=== PATIENT | female | born 1995 | race Caucasian/White ===

== ENCOUNTER 2019-08-14 19:49 | Emergency (ER) | payer MEDICAID, OTHER ==
[~2019-08-14] VITALS: Ht 170.2 cm; Wt 64.9 kg
[~2019-08-14 19:49] MED LIST: MEDR150D3 IM
[2019-08-14 19:56] VITALS: BP 124/78
--- NOTE | 2019-08-14 20:07 | ER.PDOC ---
General Chief Complaint: Chest Pain-Cardiac Nature Stated Complaint: CHEST PAIN Time seen by MD: 19:59 Source: patient Exam Limitations: no limitations History of Present Illness Initial Comments Pt c/o palpitation and tightness in her chest just before coming to the ER. She took an "EmergenC" packet just prior to onset of symptoms. She was seen at [place] ER last night for low blood pressure and feeling light headed. Labs and CT there were normal. Timing/Duration: 1 hour Severity/Quality: moderate Radiation: no radiation Activities at Onset: rest Prior CP/Workup: No Prior Chest Pain Nitro Today/Relief: No Nitro Taken Today Aspirin Today: No Aspirin Today Associated Symptoms: denies symptoms Allergies: Coded Allergies: No Known Allergies (Unverified , 01/29/14) Home Meds Active Scripts Medroxyprogesterone Acetate (DEPO-PROVERA) 150 Mg/1 Ml Disp.syrin, 150 MG IM [id number], #1 SYR Prov:PAULO ALCANTARA NP 01/29/14 Past Medical History Medical History: other (ASD) Surgical History: no surgical history Family History Significant Family History: no pertinent family hx Social History Smoking: non-smoker Drug Use: none Constitutional: no symptoms reported EENTM: no symptoms reported Respiratory: no symptoms reported Cardiovascular: chest pain (tightness), palpitations Gastrointestinal: no symptoms reported Musculoskeletal: no symptoms reported Skin: no symptoms reported Physical Exam General Appearance: No Apparent Distress, WD/WN Respiratory: chest non-tender, lungs clear, normal breath sounds, no respiratory distress, no accessory muscle use Cardiovascular: Regular Rate, Rhythm, No Edema, No Gallop, No Murmur Gastrointestinal: Normal Bowel Sounds Extremities: Normal Range of Motion, Non-Tender Neurologic/Psychiatric: Alert, Normal Mood/Affect, Oriented x 3 Skin: Normal Color, Warm/Dry Lymphatic: No Adenopathy Results/Orders Results/Orders Vital Signs Date Time Temp Pulse Resp B/P (MAP) Pulse Ox O2 Delivery O2 Flow Rate FiO2 08/14/19 19:56 97.9 104 16 99 EKG/XRAY/CT/US EKG: NSR, no ST T wave changes XRAY: chest (no acute disease process identified) Departure Time of Disposition: 21:31 Disposition: 01 HOME, SELF-CARE Impression: Primary Impression: Non-cardiac chest pain Additional Impression: Palpitations Condition: Improved Patient Instructions: Palpitations Referrals: PCP,UNKNOWN (PCP) PRIMARY CARE PROVIDER Additional Instructions: Do not take supplements with caffeine in them. Follow up with your doctor in August to review blood sugar abnormalities. Return to ER if symptoms return/worsen, difficulty breathing or other concerns. Duration or Time Spent with Pa: 1.5 hours Problem Qualifiers VENECIA UGARTE DO Aug 14, 2019 20:07
[2019-08-14] MEDS ORDERED: NS 1000ML 1,000 ML STA (20:10)
[2019-08-14] MEDS ORDERED: NS 1000ML 1,000 ML ONE (20:21)
[2019-08-14 20:25] LABS: BASOPHIL % 0.3 % (0.0-0.2); EOSINOPHIL # 0.1 10^3/uL (0.0-0.2); EOSINOPHIL % 1.3 % (0.0-5.0); LYMPHOCYTES # 2.1 10^3/uL (1.0-4.8); MEAN CORP HGB 25.8 pg (26-34); MONOCYTES # 0.5 10^3/uL (0.3-0.8); NEUTROPHILS % 65.3 % (41.0-85.0); RED CELL DISTRIBUTION WIDTH 14.9 % (11.5-14.5)
--- NOTE | 2019-08-14 20:49 | DIREP ---
PROCEDURE:CHEST 1 VIEW COMPARISON:None. INDICATIONS:chest pain FINDINGS: LUNGS/PLEURA:Lungs are clear of focal consolidation. No evidence of pleural effusion. VASCULATURE:Unremarkable pulmonary vasculature. CARDIAC:No cardiac silhouette abnormality or cardiomegaly. FLORESITA/MEDIASTINUM:No visible mass or adenopathy. BONES:No acute fracture. OTHER:No additional findings. CONCLUSION: 1. No acute cardiopulmonary changes. Dictated by: Jordan Santana M.D. on 08/14/2019 at 08:48 PM
[2019-08-14 20:54] LABS: ALANINE AMINOTRANSFERASE(ML) 16 U/L (12-78); ALKALINE PHOSPHATASE 62 U/L (50-136); ASPARTATE AMINO TRANSFERASE 12 U/L (0-35); CALCIUM 9.4 mg/dL (8.4-10.5); CARBON DIOXIDE 27.6 mmol/L (20.0-32); GLUCOSE 119 mg/dL (70-110)
[2019-08-14 21:00] VITALS: BP 117/75
--- NOTE | 2019-08-14 21:34 | NUR ---
IV DC'D TIP INTACT, NO BLEEDING
--- NOTE | 2019-08-14 23:25 | PCM.EKG ---
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
== END 2019-08-14 21:36 | disposition home or self-care (01) ==
LOC: ER 19:49
DX: R07.89 Other chest pain (principal); R00.2 Palpitations; Z79.3 Long term (current) use of hormonal contraceptives
CPT/HCPCS: 36415; 71045; 80053; 82550; 82553; 84443; 84484; 85025; 86677; 93005; 99285; J7030

== ENCOUNTER 2019-11-13 16:58 | Emergency (ER) | payer MEDICAID ==
[~2019-11-13] VITALS: Ht 170.2 cm; Wt 68.0 kg
[2019-11-13 17:16] VITALS: BP 122/99
[2019-11-13 17:26] VITALS: BP 122/99
[2019-11-13 17:35] LABS: BILIRUBIN,URINE NEGATIVE (NEGATIVE); UROBILINOGEN,URINE NORMAL (NEGATIVE)
[2019-11-13 17:36] LABS: APPEARANCE,URINE CLEAR (CLEAR); UA COLOR STRAW (YELLOW)
--- NOTE | 2019-11-13 18:09 | ER.PDOC ---
General Chief Complaint: Dizziness Stated Complaint: DIZZINESS Time seen by MD: 18:07 Source: patient Exam Limitations: no limitations History of Present Illness Initial Comments Intermittent dizziness for 5 Months. No cough or congestion. Current episode started today. Severity: moderate Associated Symptoms: ringing/roaring in ears, sense of movement Usually: walks w/o assistance Worsened By: movement of head Prior symptoms/Treatment: Similar symptoms previous Allergies: Coded Allergies: Iodinated Contrast Media (Verified Allergy, Intermediate, DYSPNEA, 11/13/19) azithromycin (Verified Allergy, Intermediate, DIFFICULTY BREATHING., 11/13/19) Home Meds Active Scripts Medroxyprogesterone Acetate (DEPO-PROVERA) 150 Mg/1 Ml Disp.syrin, 150 MG IM [id number], #1 SYR Prov:PAULO ALCANTARA [facility] 01/29/14 Past Medical History Medical History: cardiac problems, diabetes Surgical History: breast augmentation Social History Alcohol Use: occassionally Drug Use: none Review of Systems Constitutional: no symptoms reported Ears: dizziness Mouth: no symptoms reported Throat: no symptoms reported Respiratory: no symptoms reported Cardiovascular: no symptoms reported All Other Systems: Reviewed and Negative Physical Exam General Appearance: alert, no distress EENT: nml eye inspection, PERRL, no nystagmus, nml ENT inspection, pharynx nml, TM's nml Neck: supple Respiratory: no resp distress, breath sounds nml CVS: reg rate & rhythm, heart sounds.nml Abdomen: non-tender, no organomegaly, no distention Skin: color nml, no rash, warm/dry Extremities: non-tender, nml ROM, no pedal edema Neuro/Psych: nml orientation, nml speech/cognition, nml mood/affect Cranial Nerves: nml as tested, no evidence of acute CVA Sensorimotor: nml motor, nml sensation Results/Orders Results/Orders Orders - WILFRED CHEN MD Cbc With Auto Diff (11/13/19 17:50) Comprehensive Metabolic Panel (11/13/19 17:50) Ct Head Wo Contrast (11/13/19 17:50) Ekg-Routine (11/13/19 17:50) Troponin I (11/13/19 18:09) Vital Signs Date Time Temp Pulse Resp B/P (MAP) Pulse Ox O2 Delivery O2 Flow Rate FiO2 11/13/19 17:26 98.0 99 18 122/99 (107) 100 11/13/19 17:16 98.0 99 18 100 11/13/19 17:16 98.0 99 18 Laboratory Tests Test 11/13/19 17:10 11/13/19 18:24 Urine Collection Type VOID Urine Color STRAW (YELLOW) Urine Appearance CLEAR (CLEAR) Urine Bilirubin NEGATIVE MG/DL (NEGATIVE) Urine Ketones NEGATIVE (NEGATIVE) Urine Specific [place] 1.020 (1.005-1.035) Urine pH 5 (5.0-6.0) Urine Protein NEGATIVE (NEGATIVE) Urine Urobilinogen NORMAL (NEGATIVE) Urine Nitrate NEGATIVE (NEGATIVE) Urine Leukocyte Esterase NEGATIVE (NEGATIVE) Urine Blood NEGATIVE (NEGATIVE) Urine Glucose NORMAL (NEGATIVE) Urine HCG, Qualitative NEGATIVE (NEGATIVE) Urine Opiates Screen NEGATIVE (c/o300ng/mL) Urine Methadone Screen NEGATIVE (c/o300ng/mL) Urine Barbiturates Screen NEGATIVE (c/o200ng/mL) Urine Phencyclidine Screen NEGATIVE (c/o 25ng/mL) Ur Amphetamine/Methamphetamine NEGATIVE (mn6049mi/mL) Urine MDMA Screen (Ecstasy) NEGATIVE (c/o300ng/mL) Urine Benzodiazepines Screen NEGATIVE (c/o200ng/mL) Urine Cocaine Metabolite Screen NEGATIVE (c/o300ng/mL) Ur Tetrahydrocannabinol (THC) Scrn NEGATIVE (c/o 50ng/mL) White Blood Count 7.7 10^3/uL (4.5-11.0) Red Blood Count 5.34 10^6/uL (4.00-5.20) H Hemoglobin 13.3 g/dL (12.0-15.0) Hematocrit 41.5 % (36.0-46.0) Mean Corpuscular Volume 77.7 fL (78-100) L Mean Corpuscular Hemoglobin 24.9 pg (26-34) L Mean Corpuscular Hemoglobin Concent 32.0 g/dL (33-36.5) L Red Cell Distribution Width 14.7 % (11.5-14.5) H Platelet Count 248 10^3/uL (150-400) Mean Platelet Volume 10.0 fL (7.8-11.0) Neutrophils (%) (Auto) 64.1 % (41.0-85.0) Lymphocytes (%) (Auto) 30.1 % (24.0-44.0) Monocytes (%) (Auto) 3.9 % (5.0-12.0) L Neutrophils # (Auto) 4.9 10^3/uL (1.8-7.7) Lymphocytes # (Auto) 2.30 10^3/uL1 (1.0-4.8) Monocytes # (Auto) 0.3 10^3/uL (0.3-0.8) Absolute Immature Granulocyte (auto 0.01 10^3 u/L (0-2) Absolute Eosinophils (auto) 0.1 10^3/uL (0.0-0.2) Immature Granulocytes % 0.10 % (0.00-0.50) Eosinophils % 1.3 % (0.0-5.0) Basophils % 0.5 % (0.0-0.2) H Basophils # 0.0 10^3/uL (0.0-0.1) Sodium Level 141 mmol/L (132-145) Potassium Level 3.7 mmol/L (3.6-5.2) Chloride Level 104.0 mmol/L (96-109) Carbon Dioxide Level 29.7 mmol/L (20.0-32) Anion Gap 11.0 Blood Urea Nitrogen 11 mg/dL (7-18) Creatinine 0.73 mg/dL (0.59-1.40) Estimated GFR () 117.5 (>/=60) Est GFR (CKD-EPI)(Non-Afr [place]ian) 97.1 (>/=60) BUN/Creatinine Ratio 15.0 Glucose Level 80 mg/dL (70-110) Calcium Level 9.1 mg/dL (8.4-10.5) Total Bilirubin 0.3 mg/dL (0.2-1.0) Aspartate Amino Transferase (AST) 14 U/L (0-35) Alanine Aminotransferase (ALT) 18 U/L (12-78) Alkaline Phosphatase 82 U/L (50-136) Troponin I < 0.02 ng/mL (0.00-0.05) Total Protein 7.5 g/dL (6.4-8.2) Albumin 4.1 g/dL (3.4-5.0) Globulin 3.4 Progress Progress Reviewed labs and CT head with patient who voiced understanding. EKG/XRAY/CT/US EKG: NSR CT Comments: Normal CT head Departure Time of Disposition: 19:10 Disposition: 01 HOME, SELF-CARE Impression: Primary Impression: Dizziness and giddiness Condition: Stable Referrals: PCP,UNKNOWN (PCP) PRIMARY CARE PROVIDER Additional Instructions: Meclizine F/U with your PCP in 2-3 days F/U with ENT this week Return to ED if worsening or concerns. Duration or Time Spent with Pa: 60 min WILFRED CHEN MD Nov 13, 2019 18:09
--- NOTE | 2019-11-13 18:11 | PCM.EKG ---
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
--- NOTE | 2019-11-13 18:31 | DIREP ---
PROCEDURE:CT HEAD OR BRAIN W/O CONTRAST COMPARISON:[facility], CT, CT HEAD BRAIN W/O CONTRAST, 02/12/2015, 08:51 PM. [facility], CT, CT HEAD BRAIN W/O CONTRAST, 08/14/2019, 00:32 AM. INDICATIONS:Dizziness TECHNIQUE:CT images were created without intravenous contrast. The study was reviewed on brain, subdural and bone windows. FINDINGS: The ventricles are of normal size. No significant atrophy or periventricular white matter changes are seen. Basal ganglia and thalamus are normal. No acute infarct, bleed or mass lesion is seen. No acute or chronic epidural, subdural subarachnoid hemorrhage is seen. No edema, midline shift or increased intracranial pressure is seen. The posterior fossa shows no acute infarcts or mass lesions. The bone windows show no skull fracture. No air-fluid levels are seen in the maxillary or the sphenoid sinuses. No fluid in the mastoids. CONCLUSION:Negative noncontrast CT of the head. Dictated by: Clyde Dietrich MD on 11/13/2019 at 06:27 PM
[2019-11-13 18:33] LABS: BASOPHIL % 0.5 % (0.0-0.2); EOSINOPHIL # 0.1 10^3/uL (0.0-0.2); EOSINOPHIL % 1.3 % (0.0-5.0); LYMPHOCYTES % 30.1 % (24.0-44.0); MEAN CORP HGB 24.9 pg (26-34); MONOCYTES # 0.3 10^3/uL (0.3-0.8); MONOCYTES % 3.9 % (5.0-12.0); NEUTROPHIL # 4.9 10^3/uL (1.8-7.7); NEUTROPHILS % 64.1 % (41.0-85.0); PLATELET COUNT 248 10^3/uL (150-400); RED CELL DISTRIBUTION WIDTH 14.7 % (11.5-14.5)
[2019-11-13 18:47] LABS: CALCIUM 9.1 mg/dL (8.4-10.5); CARBON DIOXIDE 29.7 mmol/L (20.0-32)
[2019-11-13 19:14] VITALS: BP 108/73
== END 2019-11-13 19:15 | disposition home or self-care (01) ==
LOC: ER 16:58
DX: R42 Dizziness and giddiness (principal); E11.9 Type 2 diabetes mellitus without complications; Z79.3 Long term (current) use of hormonal contraceptives; Z88.1 Allergy status to other antibiotic agents
CPT/HCPCS: 36415; 70450; 80053; 80307; 81002; 81025; 84484; 85025; 93005; 99285